=== PATIENT | male | born 1995 | race Caucasian/White ===

== ENCOUNTER 2023-04-09 11:21 | Emergency (ER) | payer MEDICAID ==
[~2023-04-09] VITALS: Ht 175 cm; Wt 99.7 kg
[2023-04-09] MEDS ORDERED: ONDANSETRON 4 MG/2 ML (SDV) Z0FRAN ONE (11:32)
[2023-04-09] MEDS ORDERED: morphine INJ 10 MG/ML 1ML (SYR OR VIAL) ONE (11:32)
[2023-04-09] MEDS ORDERED: morphine INJ 10 MG/ML 1ML (SYR OR VIAL) IVP STA ×3 (11:41→13:33)
[2023-04-09] MEDS ORDERED: NS IV 1000 ML 1,000 ML IV SCH (11:45)
[2023-04-09] MEDS ORDERED: ONDANSETRON 4 MG/2 ML (SDV) Z0FRAN IVP ONE (11:45)
[2023-04-09] MEDS ORDERED: TETANUS,DIPTH,PERTUSS P/F (BOOSTRIX) 0.5 ML VIAL IM ONE (11:45)
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
[2023-04-09 11:50] LABS: HEMATOCRIT 45 % (40-54); HEMOGLOBIN 16.2 g/dL (13.3-17.7); MEAN CORPUSCULAR HEMOGLOBIN 30 pg (25-34); MEAN CORPUSCULAR HGB CONC 36 g/dL (32-36); MEAN CORPUSCULAR VOLUME 81 fL (80-99); MEAN PLATELET VOLUME 9.7 fL (9.0-12.2); PLATELET COUNT 297 10^3/uL (130-400); WHITE BLOOD COUNT 9.9 10^3/uL (4.3-11.0)
[2023-04-09 11:52] LABS: ALBUMIN 4.4 GM/DL (3.2-4.5); CHLORIDE 106 MMOL/L (98-107); POTASSIUM 3.5 MMOL/L (3.6-5.0); SODIUM 139 MMOL/L (135-145)
[2023-04-09 11:53] LABS: CALCIUM 9.8 MG/DL (8.5-10.1)
[2023-04-09 11:54] LABS: GLUCOSE 131 MG/DL (70-105)
[2023-04-09 11:55] LABS: CARBON DIOXIDE 19 MMOL/L (21-32); TOTAL PROTEIN 7.5 GM/DL (6.4-8.2)
[2023-04-09 11:56] LABS: BILIRUBIN,TOTAL 0.9 MG/DL (0.1-1.0)
[2023-04-09 11:58] LABS: ALKALINE PHOSPHATASE 97 U/L (40-136); GFR ESTIMATED 93
[2023-04-09 11:59] LABS: BUN/CREATININE RATIO 7
[2023-04-09 12:00] LABS: BILIRUBIN,DIRECT 0.3 MG/DL (0.0-0.3); BILIRUBIN,INDIRECT 0.6 MG/DL
[2023-04-09 12:01] LABS: ALANINE AMINOTRANSFERASE 29 U/L (0-55)
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
[2023-04-09] MEDS ORDERED: NS IV 1000 ML 1,000 ML IV STA (13:33)
[2023-04-09] MEDS ORDERED: NS 100 ML (IVPB) BAG IV ONE (14:00)
[2023-04-09] MEDS ORDERED: HOLD METFORMIN - RECEIVED CONTRAST 20 ML VIAL IV SCH (14:00)
[2023-04-09] MEDS ORDERED: IOHEXOL 350 MG/ML 100 ML (OMNIPAQUE 350) VIAL IV ONE (14:00)
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
[2023-04-09] MEDS ORDERED: HYDROmorphone 2 MG/ML VIAL (DILAUDID) IV ONE (14:45)
[2023-04-09] MEDS ORDERED: LORazepam INJ 2 MG/ML (ATIVAN) VIAL IVP ONE (16:30)
[2023-04-09 16:59] VITALS: BP 149/87
== END 2023-04-09 16:59 | disposition short-term general hospital (02) ==
LOC: ER 11:25 → EDSEX 11:25 → ER 16:59
DX: S32.401A Unspecified fracture of right acetabulum, initial encounter for closed fracture (principal); S51.011A Laceration without foreign body of right elbow, initial encounter; S90.411A Abrasion, right great toe, initial encounter; S80.212A Abrasion, left knee, initial encounter; S40.211A Abrasion of right shoulder, initial encounter; S00.511A Abrasion of lip, initial encounter; F17.210 Nicotine dependence, cigarettes, uncomplicated; R00.0 Tachycardia, unspecified; Z23 Encounter for immunization; V23.49XA Other motorcycle driver injured in collision with car, pick-up truck or van in traffic accident, initial encounter; Y93.55 Activity, bike riding; Y92.410 Unspecified street and highway as the place of occurrence of the external cause
CPT/HCPCS: 70450; 70498; 71045; 71260; 72170; 74177; 80048; 80076; 85027; 86850; 86900; 86901; 93041; G0480; 36415; 80320; 90715